=== PATIENT | female | born 1990 | race Caucasian/White ===

== ENCOUNTER 2022-03-06 00:37 | Emergency (ER) | payer MEDICAID, SELFPAY ==
[2022-03-06 00:38] VITALS: BP 142/80; PULSE 99; RESP 15; TEMP 36.9; O2SAT 98; BMI 27.0
[2022-03-06] MEDS: Lidocaine 2% /Epi 1:100 (20ml) 20 ML VIAL INFILT (03:00)
--- NOTE | 2022-03-06 03:16 | EX.ED.DYSGE1 ---
HPI History of Present Illness Chief Complaint: Laceration Narrative Narrative: Patient is a 31-year-old female with history of depression. She states about 11 PM this evening she was showering when she slipped and fell and struck her head on the faucet. She denies any loss of consciousness or bleeding disorder or blood thinner use. She states that once she was able to get out of the shower and stop the bleeding she noticed a large laceration to the right side of her forehead. She reports that she is concerned that the area may need sutured and therefore comes in for evaluation. She denies any change in vision headache light sensitivity nausea or vomiting. She reports her tetanus status is up-to-date [facility] Medical History no medical history Home Medications citalopram 20 mg tablet (Celexa) 20 mg PO DAILY 03/06/22 [History Last Taken Unknown] Allergy/AdvReac Type Severity Reaction Status Date / Time Sulfa (Sulfonamide Allergy Hives Verified 03/06/22 00:45 Antibiotics) sulfamethoxazole Allergy Hives Verified 03/06/22 00:45 [From Bactrim] trimethoprim [From Bactrim] Allergy Hives Verified 03/06/22 00:45 sumatriptan [From Imitrex] AdvReac Other Verified 03/06/22 00:45 Surgical History (Updated 03/06/22 @ 00:43 by Yris Dunham) History of appendectomy History of cholecystectomy Social History Smoking Status: Current every day smoker tobacco type: cigarettes ROS ROS ED Constitutional Constitutional ED: Denies chills or fever(s) Eyes Eyes: Denies change in vision ENT ENT ED: Denies sore throat Cardiovascular Cardiovascular: Denies chest pain Respiratory/Chest Respiratory/Chest: Denies cough or dyspnea Gastrointestinal Gastrointestinal: Denies abdominal pain, diarrhea, nausea or vomiting Genitourinary Genitourinary ED: Denies dysuria Musculoskeletal Musculoskeletal: Denies back pain, myalgias or neck pain Integumentary Reports other Details: Positive laceration ; Denies rash Neurologic Neurologic: Denies headache(s) Hematologic/Lymphatic Hematologic/Lymphatic: Denies easy bleeding or easy bruising EXAM Physical Exam Const Vital Signs: 03/06/22 00:38 03/06/22 03:21 Temperature 98.5 F Temperature Source Temporal Pulse Rate 99 99 Respiratory Rate 15 15 Blood Pressure 142/80 H 142/80 H Blood Pressure Mean 100 Pulse Ox 98 98 Oxygen Delivery Method Room Air Positive well nourished and well developed General Appearance ED: well developed HEENT HEENT Narrative: Patient has a linear subcutaneous layer deep laceration to the middle/right portion of the forehead. The wound is 3.5 cm in length with minimal ooze of blood and no foreign body. Otherwise no signs of depressed or basilar skull fracture Eyes PERRL and EOMs intact bilaterally Neck supple Neck Narrative: No bony deformity or step-off of the cervical spine no midline pain on palpation Chest Wall palpation of chest normal Resp normal respiratory effort and clear to auscultation bilaterally Cardio regular rate and regular rhythm Extremity normal to inspection Neuro oriented x3, CN's II-XII intact bilaterally and no sensory deficits noted Sensorium / Orientation: alert Psych mental status grossly normal Skin no rashes or lesions noted Skin Narrative: Laceration to the right side of the forehead as documented above MDM MDM MDM Narrative Medical decision making narrative: Patient presented to the ER awake and alert with stable vitals and normal neurologic exam. She reported a mechanical fall so I felt no need for a cardiac or syncope work-up. As this patient struck the forehead/frontal bone has no history of bleeding disorder or blood thinner use and no signs of depressed or basilar skull fracture I felt no need for head CT. The wound was closed as documented below and following this patient is safe for discharge Patient had her forehead wound cleaned with chlorhexidine. It was anesthetized with 6 mL of 2% lidocaine with epinephrine in local fashion. The wound was copiously irrigated with normal saline. Then thirteen 6-0 Ethilon sutures were placed in simple interrupted fashion this brought the wound together good approximation. Patient tolerated procedure well without complication Discharge Plan Triage Chief Complaint: Laceration ED Provider: Kuldip Dang Dx/Rx/DC Orders Clinical Impression: Facial laceration, Accidental fall, Head injury Instructions: ED Head Injury (Adult), ED Laceration: All Closures Prescriptions: No Action citalopram [Celexa] 20 mg Tablet 20 mg PO DAILY Primary Care Provider: HECTOR AGUILAR Referrals: HECTOR AGUILAR [Other] Activity Restrictions/Additional Instructions: Please see your family doctor or return to the ER in 5 to 7 days for suture removal Disposition Disposition: Home, Self Care Discharge Date/Time: 03/06/22 03:22
[2022-03-06 03:21] VITALS: BP 142/80; PULSE 99; RESP 15; O2SAT 98
== END 2022-03-06 03:22 | disposition home or self-care (01) ==
PROVIDERS: Emergency Provider Emergency Medicine; Visit Provider Emergency Medicine
DX: S01.81XA Laceration without foreign body of other part of head, initial encounter (principal); W01.198A Fall on same level from slipping, tripping and stumbling with subsequent striking against other object, initial encounter; Y93.E1 Activity, personal bathing and showering; F17.210 Nicotine dependence, cigarettes, uncomplicated; Y92.012 Bathroom of single-family (private) house as the place of occurrence of the external cause; F32.A Depression, unspecified
CPT/HCPCS: 12013; 99282